=== PATIENT | male | born 1955 | race Caucasian/White ===

== ENCOUNTER 2018-02-02 21:50 | Inpatient (IN) | payer OTHER ==
[~2018-02-02] VITALS: Ht 175.3 cm; Wt 74.8 kg
--- NOTE | 2018-02-02 21:50 | NUR ---
BIBA [facility] TO BED 4
[2018-02-02 21:56] VITALS: BP 111/48
--- NOTE | 2018-02-02 21:56 | NUR ---
PT BIBA C/O L NECK PORT A CATH SITE PAIN X 1 DAY, DILUADID GIVEN 3X SINCE YESTERDAY WITH NO RELIEF. SITE IS NEGATIVE FOR ERYTHEMA, EDEMA, POSITIVE FOR PAIN. PT DENIES N/V/D; SKIN IS INTACT, PINK/WARM/DRY; AAOX4, PERRL, PT BEDREST AT BASELINE. LUNGS CLEAR BL, BREATHING UNLABORED; HR EVEN AND REGULAR, BL PERIPHERAL PULSES PRESENT; BS ACTIVE X4, NO TENDERNESS TO PALPATION, NO HEPATOSPLENOMEGALLY PALPATED, RESONANT TO PERCUSSION; PT DENIES ANY FEVER, CP, SOB, OR COUGH AT THIS TIME; PT STATES 9/10 PAIN AT THIS TIME; VSS; PATIENT POSITIONED FOR COMFORT; HOB ELEVATED; BEDRAILS UP X2; BED DOWN.
--- NOTE | 2018-02-02 23:00 | NUR ---
PT IN NAD, ASLEEP ON GURNEY. NO REQUESTS AT THIS TIME.
[2018-02-02] MEDS ORDERED: HYDROmorphone PFS 2 MG/ML SYR IVP ONE (23:10)
[2018-02-02] MEDS ORDERED: METOCLOPRAMIDE 10 MG/2 ML INJ VIAL IVP ONE (23:10)
[2018-02-02 23:43] LABS: BASOPHILS # (AUTO) 0.1 K/uL (0.00-0.22); BASOPHILS % (AUTO) 1.3 % (0.0-2.0); EOSINOPHILS # (AUTO) 0.1 K/uL (0-0.4); EOSINOPHILS % (AUTO) 1.6 % (0.0-4.0); HEMATOCRIT 38.4 % (36-52); HEMOGLOBIN 12.1 g/dL (12.0-18.0); LYMPHOCYTES # (AUTO) 1.2 K/uL (2.0-11.5); LYMPHOCYTES % (AUTO) 15.6 % (20.5-51.1); MEAN CORPUSCULAR HEMOGLOBIN 30 pg (27-31); MEAN CORPUSCULAR HGB CONC 32 g/dL (33-37); MONOCYTES # (AUTO) 0.8 K/uL (0.8-1.0); MONOCYTES % (AUTO) 11.2 % (1.7-9.3); NEUTROPHILS # (AUTO) 5.3 K/uL (1.8-7.7); NEUTROPHILS % (AUTO) 70.3 % (42.2-75.2); PLATELET COUNT (AUTO) 288 K/uL (140-450); RED BLOOD CELL COUNT(AUTO) 4.04 MIL/uL (4.20-6.10); RED CELL DISTRIBUTION WIDTH 16.3 % (11.6-13.7); WHITE BLOOD COUNT (AUTO) 7.6 K/uL (4.8-10.8)
[2018-02-02 23:58] LABS: CARBON DIOXIDE 27.4 mmol/L (21-32); POTASSIUM 4.4 mmol/L (3.5-5.1)
[2018-02-03] MEDS ORDERED: HYDROcodone/APAP 7.5/325 MG 1 TAB PO PRN
[2018-02-03] MEDS ORDERED: ONDANSETRON 4 MG/2 ML VIAL IVP PRN
[2018-02-03 00:01] LABS: CREATININE 4.8 mg/dL (0.7-1.3)
[2018-02-03 00:05] LABS: ALBUMIN 3.1 g/dL (3.4-5.0); TOTAL BILIRUBIN 0.5 mg/dL (0.0-1.0)
[2018-02-03 00:12] LABS: PROTHROMBIN TIME 12.7 secs (10.8-13.4)
[2018-02-03] MEDS ORDERED: INSULIN LISPRO SLIDING SCALE 100 UNITS/ML VIAL SUBQ PRN (00:15)
[2018-02-03] MEDS ORDERED: DEXTROSE 50% 50 ML SYR IVP PRN (00:15)
[2018-02-03 00:38] VITALS: BP 131/85
--- NOTE | 2018-02-03 00:38 | NUR ---
PT BROUGHT BY WILLIAMS FROM ED, REPORT RECEIVED AT BESIDE FROM ED THEO JOHNSON. PT IS AWAKE AND ABLE TO FOLLOW COMMANDS, NO SIGNS OF DISTRESS, ON 2 L NC, IV IN LEFT WRIST 24G SL, PATENT AND NO SIGNS OF REDNESS OR EDEMA, V/S TAKEN, BP 131/81, PT STATES SLIGHTLY ABOVE BASELINE, PT LEFT NECK PORTACATH DRESSING DRY AND INTACT, SLIGHT REDNESS AROUND SITE, NO C/O PAIN AT THIS TIME, PICTURE TAKEN AND PLACED IN CHART, INTRODUCED SELF AND UPDATED BOARD, ORIENTATED TO ROOM, CALL LIGHT WITHIN REACH, BED IN LOWEST POSITION, WATER AND JELLO OFFERED, PT SITTING UP IN BED, RELAXED, QUESTIONS ANSWERED, WILL START PLAN OF CARE PER MD ORDERS, WILL START FREQ CHECKS Addendum: 02/03/18 at 0249 by Annmarie Weems RN NOT PORT-A CATH BUT DIALYSIS CATH.
--- NOTE | 2018-02-03 00:40 | NUR ---
Patient will be admitted to care of DR. SANTOS. Admited to [facility]. Will go to room 114. Belongings list completed. Report to ANA VENEGAS.
[2018-02-03 00:47] LABS: CHOL/HDL RATIO 4.3 (1-4.5); FREE T4 (FREE THYROXINE) 1.22 ng/dL (0.76-1.46); MAGNESIUM 2.1 mg/dL (1.8-2.4); PHOSPHORUS 4.2 mg/dL (2.5-4.9); THYROID STIMULATING HORMONE 1.85 uIU/mL (0.34-3.74)
[2018-02-03] MEDS: NACL 0.9% 1,000 ML IV SCH (01:39)
[2018-02-03] MEDS ORDERED: MIDODRINE 5 MG TAB PO SCH (02:00)
[2018-02-03] MEDS ORDERED: ZOLPIDEM 5 MG TAB PO SCH (02:00)
[2018-02-03] MEDS ORDERED: ATOR40TA PO (02:50)
[2018-02-03] MEDS ORDERED: RIVA20TA PO (02:50)
[2018-02-03] MEDS ORDERED: HYDR2TAB6 PO (02:50)
[2018-02-03] MEDS ORDERED: PRO5 PO (02:50)
--- NOTE | 2018-02-03 02:54 | NUR ---
DUE MEDICATIONS GIVEN, PT TOLERATED WELL, WILL CONTINUE TO MONITOR, CALL LIGHT WITHIN REACH.
--- NOTE | 2018-02-03 03:00 | NUR ---
STRAIGHT CATH DONE PER DR ORDER, URINE SENT TO LAB PER MD ORDER, PT TOLERATED WELL, WILL CONTINUE TO MONITOR, CALL LIGHT WITHIN REACH.
[2018-02-03] MEDS ORDERED: ASCO500T45 PO (03:25)
[2018-02-03] MEDS ORDERED: VITA1TAB44 PO (03:25)
[2018-02-03] MEDS ORDERED: [UNRECOGNIZED DRUG - CODE] PO (03:25)
[2018-02-03 03:29] LABS: APPEARANCE,URINE TURBID (CLEAR); BILIRUBIN,URINE 1+ (NEGATIVE); BLOOD, URINE 3+ (NEGATIVE); COLOR,URINE YELLOW (YELLOW); LEUKOCYTE ESTERASE ,URINE 3+ (NEGATIVE); NITRITE, URINE NEGATIVE (NEGATIVE); UGLUCOSE NEGATIVE (NEGATIVE)
[2018-02-03] MEDS ORDERED: LACT10SO1 PO (03:29)
[2018-02-03 03:39] LABS: BARBITURATE, URINE NEG. ng/ml (NEG <=200); BENZODIAZEPINE, URINE NEG. ng/mL (NEG <=200); CANNABINOID, URINE NEG. ng/mL (NEG <=50); COCAINE, URINE NEG. ng/mL (NEG <=300); OPIATE, URINE POS. ng/mL (NEG <=2000); PHENCYCLIDINE SCREEN,URINE NEG. ng/mL (NEG <=25)
[2018-02-03] MEDS ORDERED: ALBUTEROL SULFATE/IPRATROPIU 3 ML SOL IH PRN (03:40)
[2018-02-03 03:42] LABS: RBC,URINE >100 /HPF (0-5); WBC,URINE TOO MANY TO COUNT /HPF (0-5)
[2018-02-03 04:00] VITALS: BP 139/85
--- NOTE | 2018-02-03 04:49 | NUR ---
PT SLEEPING IN BED, NO SIGNS OF DISTRESS, BED IN LOWEST POSITION, CALL LIGHT WITHIN REACH, WILL CONTINUE TO MONITOR.
[2018-02-03] MEDS ORDERED: cefTRIAXone 1,000 MG VIAL ONE (06:23)
[2018-02-03] MEDS: LEVOTHYROXINE 0.05 MG TAB PO SCH (06:23)
--- NOTE | 2018-02-03 06:23 | NUR ---
DUE MEDICATIONS GIVEN, PT TOLERATED WELL, WILL CONTINUE TO MONITOR, CALL LIGHT WITHIN REACH.
[2018-02-03] MEDS: MIDODRINE 5 MG TAB PO SCH ×3 (06:24→21:00)
--- NOTE | 2018-02-03 06:33 | NUR ---
PATIENT HAS BEEN SCREENED AND CATEGORIZED HIGH NUTRITION RISK. PATIENT WILL BE SEEN WITHIN 1-2 DAYS OF ADMISSION. 02/04/18-02/05/18 VIKAS LYNN MS, RDN
[2018-02-03 07:26] LABS: BASOPHILS # (AUTO) 0.1 K/uL (0.00-0.22); BASOPHILS % (AUTO) 0.9 % (0.0-2.0); EOSINOPHILS # (AUTO) 0.2 K/uL (0-0.4); EOSINOPHILS % (AUTO) 3.5 % (0.0-4.0); HEMOGLOBIN 12.2 g/dL (12.0-18.0); LYMPHOCYTES # (AUTO) 1.4 K/uL (2.0-11.5); LYMPHOCYTES % (AUTO) 19.8 % (20.5-51.1); MEAN CORPUSCULAR HEMOGLOBIN 29 pg (27-31); MEAN CORPUSCULAR HGB CONC 31 g/dL (33-37); MEAN CORPUSCULAR VOLUME 96.1 fL (80-94); MONOCYTES # (AUTO) 0.6 K/uL (0.8-1.0); MONOCYTES % (AUTO) 8.7 % (1.7-9.3); NEUTROPHILS # (AUTO) 4.8 K/uL (1.8-7.7); NEUTROPHILS % (AUTO) 67.1 % (42.2-75.2); PLATELET COUNT (AUTO) 312 K/uL (140-450); RED BLOOD CELL COUNT(AUTO) 4.16 MIL/uL (4.20-6.10); RED CELL DISTRIBUTION WIDTH 16.3 % (11.6-13.7); WHITE BLOOD COUNT (AUTO) 7.2 K/uL (4.8-10.8)
[2018-02-03] MEDS ORDERED: BLOOD GLUCOSE MONITORING 1 DEV DEV FS SCH (07:30)
--- NOTE | 2018-02-03 07:36 | NUR ---
ENDORSED PT TO DAY SHIFT NURSE GIANNA CAMPOS STABLE AT THIS TIME.
--- NOTE | 2018-02-03 07:37 | NUR ---
RECEIVED REPORT FROM THE ELEMENTARY READING TUTOR NURSE AT BEDSIDE FOR CONTINUITY OF CARE. PT IS AWAKE AND ORIENTED. INTRODUCED MYSELF AND UPDATE THE BOARD. V/S WITHIN NORMAL RANGE. DENIES PAIN AT THIS TIME. PT IS BEDBOUND, SKIN INTACT. IV ON L HAND 24G TKO. L CHEST DIALYSIS CATH -NOT WORKING. MD'S ROUNDING. PER , WAITING ON DR. MCCRAY FOR CONSULT, POSSIBLE EKTA CATH AT BEDSIDE, THEN DIALYSIS TODAY. MISSED DIALYSIS YESTERDAY D/T CATH MALFUNCTION. PT ALSO HAS UTI. CONTINUE W/ ABX TX. WILL CONTINUE TO MONITOR PT.
[2018-02-03 07:40] LABS: ANION GAP 14.1 (8-16); CARBON DIOXIDE 28.1 mmol/L (21-32); POTASSIUM 4.2 mmol/L (3.5-5.1)
[2018-02-03 07:42] LABS: MAGNESIUM 2.1 mg/dL (1.8-2.4); PHOSPHORUS 5.3 mg/dL (2.5-4.9)
[2018-02-03 07:50] LABS: CREATININE 5.1 mg/dL (0.7-1.3)
[2018-02-03 08:00] VITALS: BP 116/71
[2018-02-03] MEDS ORDERED: RIVAROXABAN 10 MG TAB PO SCH (09:00)
[2018-02-03] MEDS ORDERED: ECOTRIN 81 MG TABEC PO SCH (09:00)
[2018-02-03] MEDS: LACTULOSE 20 GM/30 ML UDC PO SCH (09:04)
[2018-02-03] MEDS: DOCUSATE SODIUM 100 MG GELCAP PO SCH ×2 (09:05→21:05)
[2018-02-03] MEDS: FENOFIBRATE 48 MG TAB PO SCH (09:05)
[2018-02-03] MEDS: LACTOBACILLUS RHAMNOSUS GG 1 EACH CAP PO SCH (09:06)
[2018-02-03] MEDS: ATORVASTATIN 20 MG TAB PO SCH (09:06)
--- NOTE | 2018-02-03 09:10 | NUR ---
STUDENT AND INSTRUCTOR ADMINISTERED MORNING MEDS. PT TOLERATED WELL. PT SIGNED THE CONSENT FOR THE TDC. PT VERBALIZED UNDERSTANDING. NOW IN CHART. WILL CONTINUE TO MONITOR PT.
--- NOTE | 2018-02-03 09:24 | NUR ---
DR MCCRAY CALLED. PT NOT NPO SO NO TDC TODAY. POSSIBLY DO A EKAT FOR DIALYSIS TODAY AND DO TDC ON MONDAY. WILL NEED TO KEEP PT NPO AFTER MIDNIGHT ON MONDAY NIGHT. WILL ENDORSE. WILL GET EVERYTHING READY FOR EKTA CATH INSERTION, INCLUDING CONSENT.
[2018-02-03] MEDS: ALBUTEROL SULFATE/IPRATROPIU 3 ML SOL IH SCH ×2 (09:31→19:46)
--- NOTE | 2018-02-03 09:40 | NUR ---
RECEIVED PATIENT ON 2L NC, O2 SAT 94%. BREATHING TREATMENT ADMINISTERED. PATIENT TOLERATED TX WELL, NO ADVERSE SIDE EFFECTS. NO RESPIRATORY DISTRESS NOTED. WILL CONTINUE TO MONITOR.
--- NOTE | 2018-02-03 10:00 | NUR ---
DR MCCRAY HERE TO ASSESS PT. D/T PT ALREADY HAVE EATEN BREAKFAST AND TOOK ASPIRIN, WILL DO THE PROCEDURE TOMORROW MORNING. PT IS TO BE NPO AFTER MIDNIGHT AND HOLD ASPIRIN. DR MCCRAY SPOKE TO DR REESE NEPHBOSTON LUNA TO DO DIALYSIS TOMORROW AFTER THE NEW TDC IS INSERTED. WILL CONTINUE TO MONITOR PT.
[2018-02-03 12:00] VITALS: BP 112/54
--- NOTE | 2018-02-03 12:08 | NUR ---
VS WITHIN NORMAL RANGE. NO SIGNS OF DISTRESS. NO COMPLAINTS. NOTIFIED PT OF THE HOLD ON DIALYSIS TODAY AND HIS TDC TOMORROW MORNING. PT AWARE. WILL CONTINUE TO MONITOR PT.
--- NOTE | 2018-02-03 13:38 | NUR ---
DOPPLER AND US BEING DONE. WILL BE BACK TO ADMINISTER MED.
--- NOTE | 2018-02-03 14:29 | NUR ---
PROCEDURE JUST FINISHED. REDRESSED THE TDC. PULLED PT UP FOR LATE LUNCH. GAVE SCHEDULED MED. PT TOLERATED WELL. WILL CONTINUE TO MONITOR PT.
[2018-02-03 16:00] VITALS: BP 104/68
--- NOTE | 2018-02-03 16:48 | NUR ---
PT IS RESTING COMFORTABLY. NO SIGNS OF DISTRESS. WILL CONTINUE TO MONITOR PT.
--- NOTE | 2018-02-03 17:47 | NUR ---
PT SLEEPING SOUNDLY. NO SIGNS OF DISTRESS. WILL CONTINUE TO MONITOR PT.
--- NOTE | 2018-02-03 19:25 | NUR ---
RECEIVED PATIENT RESTING ON BED. CALL LIGHT WITHIN REACH. IV INFUSING WELL. WILL CONTINUE TO MONITOR.
--- NOTE | 2018-02-03 19:25 | NUR ---
ENDORSED PT TO THE HEALTH DIRECTOR NURSE AT BEDSIDE FOR CONTINUITY OF CARE. PT IS IN STABLE CONDITION.
[2018-02-03 20:00] VITALS: BP 130/52
--- NOTE | 2018-02-03 20:30 | NUR ---
NOTIFIED RESIDENT ABOUT THE US RESULT. NO CHANGES MADE.
[2018-02-03] MEDS: ZOLPIDEM 5 MG TAB PO SCH (21:04)
--- NOTE | 2018-02-03 22:20 | NUR ---
SEEN PATIENT RESTING ON BED WITH CALL LIGHT WITHIN REACH. NO S/S OF DISTRESS NOTED AT THIS TIME. INSTRUCTED PATIENT NPO AFTER MIDNIGHT AND VERBALIZED UNDERSTANDING. NPO SIGN PLACE INFRONT OF THE DOOR .WILL CONTINUE TO MONITOR.
[2018-02-04] VITALS (12 sets, daily range): BP systolic 98–135; BP diastolic 51–81
[2018-02-04] MEDS: NACL 0.9% 1,000 ML IV SCH (01:00)
--- NOTE | 2018-02-04 04:20 | NUR ---
SEEN PATIENT RESTING ON BED WITH CALL LIGHTS WITHIN REACH. BED IN LOW POSITION. NO S/S OF DISTRESS NOTED AT THIS TIME.
[2018-02-04] MEDS: LEVOTHYROXINE 0.05 MG TAB PO SCH (05:37)
[2018-02-04] MEDS: MIDODRINE 5 MG TAB PO SCH ×3 (06:13→18:32)
--- NOTE | 2018-02-04 07:15 | NUR ---
GAVE REPORT TO AM SHIFT NURSE AT BEDSIDE FOR CONTINUITY OF CARE. PATIENT IN STABLE CONDITION.
--- NOTE | 2018-02-04 07:16 | NUR ---
RECEIVED BEDSIDE REPORT FROM TRUST MANAGER NURSE. PATIENT IS AWAKE, ALERT AND ORIENTEDX3. PATIENT IN NO DISTRESS ON 2L NC. HE IS BEDBOUND, PARAPELGIC. SKIN HAS A L NECK PORT A CATH, TODAY HE WILL BE GETTING IT REMOVED. CONSENT SIGNED BY TRUST MANAGER NURSE, SURGICAL CHECKLIST DONE BY TRUST MANAGER NURSE. TELE MONITOR IN PLACE. L WRIST 24G NS TKO. IV IS CLEAN, DRY AND INTACT. PATIENT IS NPO FOR SURGERY. BED IN LOW POSITION. CALL LIGHT WITHIN REACH. WILL CONTINUE TO MONITOR THE PATIENT. R ARM IS RESTRICTED D/T THROMBUS WITHIN INTERNAL JUGULAR VEIN. SIGNS POSTED.
--- NOTE | 2018-02-04 07:20 | NUR ---
GAVE REPORT TO OR NURSE. PATIENT LEFT WITH OR IN STABLE CONDITION.
[2018-02-04] MEDS ORDERED: BUPIVACAINE-MPF 0.5% 10 ML VIAL INJ ONE (07:36)
[2018-02-04] MEDS ORDERED: LIDOCAINE/EPI 1% 1:100000 20 ML VIAL INJ ONE (07:37)
[2018-02-04 07:42] LABS: BASOPHILS # (AUTO) 0.1 K/uL (0.00-0.22); BASOPHILS % (AUTO) 1.4 % (0.0-2.0); EOSINOPHILS # (AUTO) 0.3 K/uL (0-0.4); EOSINOPHILS % (AUTO) 4.2 % (0.0-4.0); HEMATOCRIT 35.7 % (36-52); HEMOGLOBIN 11.2 g/dL (12.0-18.0); LYMPHOCYTES # (AUTO) 1.1 K/uL (2.0-11.5); LYMPHOCYTES % (AUTO) 17.3 % (20.5-51.1); MEAN CORPUSCULAR HEMOGLOBIN 30 pg (27-31); MEAN CORPUSCULAR HGB CONC 31 g/dL (33-37); MEAN CORPUSCULAR VOLUME 95.3 fL (80-94); MONOCYTES # (AUTO) 0.8 K/uL (0.8-1.0); NEUTROPHILS # (AUTO) 4.1 K/uL (1.8-7.7); NEUTROPHILS % (AUTO) 64.1 % (42.2-75.2); PLATELET COUNT (AUTO) 280 K/uL (140-450); RED BLOOD CELL COUNT(AUTO) 3.75 MIL/uL (4.20-6.10); RED CELL DISTRIBUTION WIDTH 16.1 % (11.6-13.7); WHITE BLOOD COUNT (AUTO) 6.4 K/uL (4.8-10.8)
[2018-02-04 07:46] LABS: ANION GAP 15.5 (8-16); CARBON DIOXIDE 26.6 mmol/L (21-32); POTASSIUM 4.1 mmol/L (3.5-5.1)
[2018-02-04] MEDS ORDERED: ceFAZolin 1,000 MG VIAL ONE (07:50)
[2018-02-04] MEDS ORDERED: fentaNYL 0.05 MG/ML VIAL ONE (07:52)
[2018-02-04] MEDS ORDERED: MIDAZOLAM 2 MG/2 ML VIAL ONE ×2 (07:53→08:07)
[2018-02-04 07:55] LABS: MAGNESIUM 2.1 mg/dL (1.8-2.4); PHOSPHORUS 5.3 mg/dL (2.5-4.9)
[2018-02-04 07:59] LABS: CREATININE 5.4 mg/dL (0.7-1.3)
[2018-02-04] MEDS: FENOFIBRATE 48 MG TAB PO SCH (09:00)
[2018-02-04] MEDS: DOCUSATE SODIUM 100 MG GELCAP PO SCH ×2 (09:00→21:14)
[2018-02-04] MEDS: ATORVASTATIN 20 MG TAB PO SCH (09:00)
[2018-02-04] MEDS: LACTOBACILLUS RHAMNOSUS GG 1 EACH CAP PO SCH (09:00)
--- NOTE | 2018-02-04 10:00 | NUR ---
PATIENT BACK ON THE FLOOR FROM OR. VITALS ARE WITHIN NORMAL LIMITS ON 2L NC. BED IN LOW POSITION. CALL LIGHT WITHIN REACH. WILL CONTINUE TO MONITOR THE PATIENT. WILL CHECK POST OP VITALS
[2018-02-04] MEDS: ALBUTEROL SULFATE/IPRATROPIU 3 ML SOL IH SCH ×3 (10:45→20:58)
[2018-02-04] MEDS: HYDROmorphone 2 MG TAB PO PRN (11:37)
--- NOTE | 2018-02-04 12:00 | NUR ---
DIALYSIS NURSE AT BEDSIDE GOING TO START DIALYSIS. WILL CONTINUE TO MONITOR THE PATIENT.
--- NOTE | 2018-02-04 13:00 | NUR ---
PATIENT TOLERATING DIALYSIS WELL. WILL CONTINUE TO MONITOR THE PATIENT.
[2018-02-04] MEDS ORDERED: HYDROmorphone 1 MG/ML AMP IVP SCH (13:29)
--- NOTE | 2018-02-04 15:00 | NUR ---
DIALYSIS NURSE DONE WITH DIALYSIS. SHE WAS UNABLE TO GET ANY OUTPUT. SHE STATES PATIENT IS DRY AND THE CATH KEPT CLOTTING TOO FAST. DIALYSIS NURSE TOLD DR. SHE SAID IS AWARE.
[2018-02-04] MEDS ORDERED: tiZANidine 4 MG TAB PO SCH (15:15)
[2018-02-04] MEDS ORDERED: CARISOPRODOL 350 MG TAB PO ONE (17:15)
--- NOTE | 2018-02-04 17:30 | NUR ---
CONTACT PRECAUTIONS IN PLACE. MRSA POSITIVE IN NARES.
[2018-02-04] MEDS: MUPIROCIN 2% OINT 22 GM TUBE TP SCH (17:45)
[2018-02-04] MEDS: CHLORHEXADINE GLUC 2% CLOTH TP SCH (18:32)
--- NOTE | 2018-02-04 19:15 | NUR ---
GAVE BEDSIDE REPORT TO FLEET MECHANIC NURSE. PATIENT IS IN STABLE CONDITION
--- NOTE | 2018-02-04 19:20 | NUR ---
RECEIVED PATIENT LYING ON BED . PATIENT AAOX4, COOPERATIVE AND REPOSITIONED FOR COMFORT. DISCUSSED PLAN OF CARE AND VERBALIZED UNDERSTANDING.
--- NOTE | 2018-02-04 20:13 | NUR ---
HE REFUSED TX HHN AT THIS TIME, HE WANTS AFTER HIS REPOSITION
--- NOTE | 2018-02-04 20:58 | NUR ---
I RETURNED TO GAVE PT HHNTX, AND HE WANTS TO SLEEP NOW
[2018-02-04] MEDS: tiZANidine 4 MG TAB PO SCH (21:00)
[2018-02-04] MEDS: ZOLPIDEM 5 MG TAB PO SCH (21:14)
--- NOTE | 2018-02-04 21:25 | NUR ---
MEDICATION GIVEN AND TOLERATED WELL. REPOSITIONED PATIENT TO HIS SIDE AND CHANGE UNDER PADS . WILL CONTINUE TO MONITOR.
--- NOTE | 2018-02-04 23:25 | NUR ---
REPOSITIONED PATIENT TO HIS SIDE AND PLACE IN COMFORTABLE POSITION. CALL LIGHTS WITHIN REACH. WILL CONTINUE TO MONITOR.
[2018-02-05] VITALS: BP 126/62
[2018-02-05] MEDS: HYDROmorphone 2 MG TAB PO PRN ×3 (00:57→22:28)
[2018-02-05] MEDS: NACL 0.9% 1,000 ML IV SCH (01:00)
--- NOTE | 2018-02-05 02:22 | NUR ---
SEEN PATIENT RESTING COMFORTABLY ON BED WITH NC 2L IN PLACE. IV INFUSING WELL RUNNING @KVO. CALL LIGHT WITHIN REACH. WILL CONTINUE TO MONITOR.
[2018-02-05 04:00] VITALS: BP 109/61
[2018-02-05] MEDS: tiZANidine 4 MG TAB PO SCH ×3 (04:34→21:14)
[2018-02-05] MEDS: LEVOTHYROXINE 0.05 MG TAB PO SCH (06:04)
[2018-02-05] MEDS: MIDODRINE 5 MG TAB PO SCH ×3 (06:04→18:04)
[2018-02-05 06:47] LABS: BASOPHILS # (AUTO) 0.1 K/uL (0.00-0.22); BASOPHILS % (AUTO) 1.2 % (0.0-2.0); EOSINOPHILS # (AUTO) 0.4 K/uL (0-0.4); EOSINOPHILS % (AUTO) 5.9 % (0.0-4.0); HEMATOCRIT 32.4 % (36-52); HEMOGLOBIN 10.4 g/dL (12.0-18.0); LYMPHOCYTES # (AUTO) 1.4 K/uL (2.0-11.5); LYMPHOCYTES % (AUTO) 22.7 % (20.5-51.1); MEAN CORPUSCULAR HEMOGLOBIN 30 pg (27-31); MEAN CORPUSCULAR HGB CONC 32 g/dL (33-37); MEAN CORPUSCULAR VOLUME 92.7 fL (80-94); MONOCYTES # (AUTO) 0.6 K/uL (0.8-1.0); MONOCYTES % (AUTO) 9.7 % (1.7-9.3); NEUTROPHILS # (AUTO) 3.8 K/uL (1.8-7.7); NEUTROPHILS % (AUTO) 60.5 % (42.2-75.2); PLATELET COUNT (AUTO) 237 K/uL (140-450); RED BLOOD CELL COUNT(AUTO) 3.49 MIL/uL (4.20-6.10); WHITE BLOOD COUNT (AUTO) 6.2 K/uL (4.8-10.8)
[2018-02-05 07:10] LABS: PROTHROMBIN TIME 12.7 secs (10.8-13.4)
--- NOTE | 2018-02-05 07:12 | NUR ---
ENDORSEMENT GIVEN AT BEDSIDE TO AM SHIFT NURSE FOR CONTINUITY OF CARE. PATIENT IN STABLE CONDITION.
--- NOTE | 2018-02-05 07:14 | NUR ---
RECEIVED BEDSIDE REPORT FROM LABORER FILTER PLANT NURSE. PATIENT IS AWAKE, ALERT AND ORIENTEDX4. REPOSITIONED HIM WITH COMIC ARTIST. NO SIGNS OF DISTRESS ON 2L NC. PATIENT IS BEDBOUND, PARAPLEGIC. PATIENT IS INCONTINENT. TELE MONITOR IN PLACE. L FOOT 24G INFUSING 5ML/HR TKO. DIALYSIS CATH ON L UPPER CHEST, SOILED, WILL CLEAN THE DRESSING. NO SIGNS OF INFECTION. BED IN LOW POSITION. CALL LIGHT WITHIN REACH. WILL CONTINUE TO MONITOR THE PATIENT.
[2018-02-05 07:26] LABS: ANION GAP 12.9 (8-16); CARBON DIOXIDE 28.3 mmol/L (21-32); POTASSIUM 4.2 mmol/L (3.5-5.1)
[2018-02-05 07:33] LABS: CREATININE 4.2 mg/dL (0.7-1.3)
[2018-02-05 07:34] LABS: MAGNESIUM 1.8 mg/dL (1.8-2.4); PHOSPHORUS 4.7 mg/dL (2.5-4.9)
[2018-02-05] MEDS: ALBUTEROL SULFATE/IPRATROPIU 3 ML SOL IH SCH ×2 (07:56→20:11)
[2018-02-05 08:00] VITALS: BP 112/70
[2018-02-05] MEDS: DOCUSATE SODIUM 100 MG GELCAP PO SCH ×2 (09:19→21:14)
[2018-02-05] MEDS: LACTOBACILLUS RHAMNOSUS GG 1 EACH CAP PO SCH (09:20)
[2018-02-05] MEDS: FENOFIBRATE 48 MG TAB PO SCH (09:20)
[2018-02-05] MEDS: ATORVASTATIN 20 MG TAB PO SCH (09:20)
[2018-02-05] MEDS: ACETAMINOPHEN 325 MG TAB PO PRN ×2 (09:20→18:04)
--- NOTE | 2018-02-05 09:22 | NUR ---
ADMINISTERED MEDS. PATIENT TOLERATED WELL. BED IN LOW POSITION. CALL LIGHT WITHIN REACH. WILL CONTINUE TO MONITOR THE PATIENT.
--- NOTE | 2018-02-05 09:29 | NUR ---
DR ALICEA IN AND SAW PATIENT, ANSWERED ALL PATIENTS QUESTIONS AT THIS TIME. HE SAID HE WILL GET DR MCCRAY TO DO ANOTHER CONSULT FOR THE DIALYSIS CATH. PATIENT VERBALIZED UNDERSTANDING. WILL CONTINUE TO MONITOR THE PATIENT. DR ALICEA SAID TO NOT TAKE OFF DRESSING AND TO JUST WAIT FOR DR MCCRAY
[2018-02-05] MEDS ORDERED: hePARIN / DEXT 5% PREMIX 250 ML IV SCH (10:05)
[2018-02-05] MEDS ORDERED: HEPARIN PER PHARMACY MC PRN (10:05)
[2018-02-05] MEDS: hePARIN / DEXT 5% PREMIX 250 ML IV SCH ×2 (11:34→20:11)
--- NOTE | 2018-02-05 11:40 | NUR ---
STARTED HEPARIN DRIP AND HEPARIN BOLUS PER PROTOCOL. EDUCATED THE PATIENT ON ABN S/SX OF BLEEDING. PATIENT VERBALIZED UNDERSTANDING. WILL CONTINUE TO MONITOR THE PATIENT
[2018-02-05 12:00] VITALS: BP 103/60
--- NOTE | 2018-02-05 12:40 | NUR ---
PATIENT WITH SS AT THIS TIME. PATIENT IN STABLE CONDITION
--- NOTE | 2018-02-05 13:56 | NUR ---
TURNED PATIENT WITH THEO CELESTIN. PATIENT TOLERATED WELL. BED IN LOW POSITION. CALL LIGHT WITHIN REACH. WILL CONTINUE TO MONITOR THE PATIENT.
--- NOTE | 2018-02-05 15:34 | NUR ---
02/05/18 RD INITIAL ASSESSMENT COMPLETED PLEASE REFER TO NUTRITION ASSESSMENT UNDER CARE ACTIVITY FOR ESTIMATED NUTRITIONAL NEEDS. 1. CONTINUE RENAL DIET TOLERATED 2. PROVIDE NUTRITION EDUCATION FOR FOLLOW UP VISIT 3. RD TO FOLLOW-UP 3-5 DAYS, MODERATE RISK MAXINE SERRA RD
[2018-02-05 16:00] VITALS: BP 110/69
--- NOTE | 2018-02-05 16:00 | NUR ---
VITALS ARE WITHIN NORMAL LIMITS. BED IN LOW POSITION. CALL LIGHT WITHIN REACH, WILL CONTINUE TO MONITOR THE PATIENT,
[2018-02-05] MEDS: CHLORHEXADINE GLUC 2% CLOTH TP SCH (18:21)
[2018-02-05] MEDS: MUPIROCIN 2% OINT 22 GM TUBE TP SCH (18:21)
--- NOTE | 2018-02-05 18:23 | NUR ---
ADMINISTERED MEDS. PATIENT TOLERATED WELL. CLEANED AND CHANGED DRESSING FOR THE DIALYSIS CATH. WILL CONTINUE TO MONITOR THE PATIENT.
--- NOTE | 2018-02-05 18:52 | NUR ---
STOPPED HEPARIN PER PHARMACY PROTOCOL. WILL ENDORSE TO SPACE TECHNOLOGIST TO RESTART AND CHANGE DOSE AT 1951
--- NOTE | 2018-02-05 19:20 | NUR ---
GAVE BEDSIDE REPORT TO LABORER STARCH FACTORY NURSE. PATIENT IN STABLE CONDITION
--- NOTE | 2018-02-05 19:52 | NUR ---
A/A/OX4.PARAPLEGIC.AFEBRILE.DENIES ANY DISCOMFORT.DENIES SOB.HEPARIN DRIP RESUMED @ 1100UNITS/HR.
[2018-02-05 20:00] VITALS: BP 90/50
[2018-02-05] MEDS: ZOLPIDEM 5 MG TAB PO SCH (21:13)
--- NOTE | 2018-02-05 22:00 | NUR ---
REPOSITIONED BY TRADE FACILITATOR.NO ACUTE DISTRESS NOTED.
[2018-02-06] VITALS: BP 97/55
--- NOTE | 2018-02-06 00:01 | NUR ---
V/S S.AFEBRILE.REPOSITIONED. HEPARIN DRIP INFUSING WELL.
[2018-02-06] MEDS: NACL 0.9% 1,000 ML IV SCH (01:00)
--- NOTE | 2018-02-06 03:00 | NUR ---
@0255 LAB CALLED PTT 78.6. @0300 HEPARIN DRIP < @950 UNITS/HR INFUSING WELL WITH SOFTWARE DEVELOPMENT MANAGER.KEPT NPO POST [place] PER MD ORDER;VERBALIZED UNDERSTANDING OF THE INSTRUCTION GIVEN.
[2018-02-06] MEDS: hePARIN / DEXT 5% PREMIX 250 ML IV SCH (03:03)
[2018-02-06 04:00] VITALS: BP 107/45
[2018-02-06] MEDS: tiZANidine 4 MG TAB PO SCH ×3 (05:00→20:14)
--- NOTE | 2018-02-06 06:00 | NUR ---
IV INSERTED ON HIS LEFT LEG WITH ANGIO # 22 X1.ROCEPHIN IV ADM ORDERED. NEPHRO MD'S DID THEIR ROUNDS & WAS SO UPSET WHY WAS NOT CALLED BY ANYBODY THAT PT WAS NOT DIALYZED. SPOKE TO KISS SETTER HAND RE; THE INCIDENT.
[2018-02-06] MEDS: LEVOTHYROXINE 0.05 MG TAB PO SCH (06:06)
[2018-02-06] MEDS: MIDODRINE 5 MG TAB PO SCH ×3 (06:07→20:14)
--- NOTE | 2018-02-06 07:00 | NUR ---
REPORT GIVEN TO RN & WAS TOLD TO CALL HD RN.ENDORSED IN NO ACUTE DISTRESS. SAFETY MAINTAINED.
--- NOTE | 2018-02-06 07:10 | NUR ---
RECEIVED PT FROM DATABASE SOFTWARE TECHNICIAN NURSECAREN FROM REGISTRY. PT IS ASLEEP LYING ON THE BED, RESPIRATIONS EVEN, SIDE RAILS ARE UP AND CALL LIGHT WITHIN REACH. PT HAS AN ON GOING HEPARIN DRIP RUNNING AT 950UNITS, IN THE LEFT FOOT PERIPHERAL LINE. PT HAS ANOTHER PERIPHERAL LINE ON THE LEFT UPPER FOOT, INTACT. SAFETY PRECAUTION ENFORCED. NO SIGN OF DISTRESS NOTED. WILL CONTINUE TO MONITOR.
--- NOTE | 2018-02-06 07:44 | NUR ---
CALLED DIALYSIS NURSE AND SPOKE TO TJ ARIAS AND INFORMED HER THAT DR. CARRINGTON WANTS THE PT TO HAVE DIALYSIS TODAY. TJ ARIAS SAID THAT SHE WILL BE SENDING SOMEBODY TO DIALYSED THE PT TODAY. INFORMATION WAS RELAYED TO CHARGE NURSE, YARIEL.
[2018-02-06 08:00] VITALS: BP 128/77
[2018-02-06 08:38] LABS: ANION GAP 15.4 (8-16); CARBON DIOXIDE 25.4 mmol/L (21-32); POTASSIUM 3.8 mmol/L (3.5-5.1)
--- NOTE | 2018-02-06 08:40 | NUR ---
SHERI FROM LAB CALLED AND REPORTED THE PT'S CREATININE LEVEL WHICH IS 4.4, ACKNOWLEDGED AND WILL INFORM THE DOCTOR.
[2018-02-06 08:42] LABS: CREATININE 4.4 mg/dL (0.7-1.3)
[2018-02-06] MEDS: LACTULOSE 20 GM/30 ML UDC PO SCH (09:00)
--- NOTE | 2018-02-06 09:20 | NUR ---
PT IS AWAKE AND LYING ON THE BED, PT IS BEING PREPARED BY DIALYSIS NURSE FOR THE PROCEDURE, VITAL SIGNS TAKEN AND IS STABLE. MEDICATIONS GIVEN AND PT TOLERATED IT. NO SIGN OF DISTRESS NOTED. WILL CONTINUE TO MONITOR.
--- NOTE | 2018-02-06 09:30 | NUR ---
DIALYSIS NURSE, ELISE MORENO AND PT IS NOW BEING DIALYSED. NO SIGN OF DISTRESS NOTED AND WILL MONITOR.
[2018-02-06] MEDS: ATORVASTATIN 20 MG TAB PO SCH (09:57)
[2018-02-06] MEDS: LACTOBACILLUS RHAMNOSUS GG 1 EACH CAP PO SCH (09:58)
[2018-02-06] MEDS: HYDROmorphone 2 MG TAB PO PRN ×2 (09:58→21:03)
[2018-02-06] MEDS: FENOFIBRATE 48 MG TAB PO SCH (09:58)
[2018-02-06] MEDS: DOCUSATE SODIUM 100 MG GELCAP PO SCH ×2 (09:59→20:14)
--- NOTE | 2018-02-06 10:08 | NUR ---
DR. ALICEA VISITED AND SAW THE PT, WHILE DIALYSIS IS ON GOING. DR. ALICEA SPOKE TO THE PT AND THE DIALYSIS NURSE. VITAL SIGNS TAKEN AND MEDICATIONS GIVEN AND PT TOLERATED IT. NO SIGN OF DISTRESS NOTED. PT REFUSED TO TAKE THE LACTULOSE, ACKNOWLEDGED. WILL MONITOR PT.
--- NOTE | 2018-02-06 10:38 | NUR ---
SHERI FROM LAB CALLED AND INFORMED THAT THE PT'S PTT LEVEL IS 89.3, ACKNOWLEDGED AND WILL INFORM THE MD.
--- NOTE | 2018-02-06 10:50 | NUR ---
DR. LEZAMA WAS INFORMED OF THE PT'S PTT LEVEL OF 89.3, MD ACKNOWLEDGED AND WAS INFORMED TO DECREASE HEPARIN DRIP TO 800 UNITS. ACKNOWLEDGED AND WILL FACILITATE ORDER.
[2018-02-06 12:00] VITALS: BP 113/53
[2018-02-06] MEDS ORDERED: ALTEPLASE 2 MG VIAL MC SCH (13:00)
[2018-02-06] MEDS ORDERED: PRO5 PO (14:59)
--- NOTE | 2018-02-06 14:59 | NUR ---
Spoke to bed control at [facility] and still waiting for bed to open. Was given the floor phone number in case a bed is available. spoke to Dr. Castillo and stated that Dr. Pickens did not contact [facility] and Since Dr. Hameed accepted at [facility], then we wait for [facility] bed.
[2018-02-06] MEDS ORDERED: TRI48 PO (15:01)
[2018-02-06] MEDS ORDERED: SYN.05 PO (15:03)
[2018-02-06] MEDS ORDERED: TIZA4CAP PO (15:04)
[2018-02-06] MEDS ORDERED: ZOLP5TAB1 PO (15:04)
[2018-02-06] MEDS: ALBUTEROL SULFATE/IPRATROPIU 3 ML SOL IH SCH (15:25)
--- NOTE | 2018-02-06 15:35 | NUR ---
SPOKE TO DR. ALICEA AND SAID THAT THE PLAN OF CARE FOR THE PT IS TO BE TRANSFERRED TO [facility]. ACKNOWLEDGED INFORMATION.
[2018-02-06 16:00] VITALS: BP 112/57
[2018-02-06] MEDS: CHLORHEXADINE GLUC 2% CLOTH TP SCH (18:23)
[2018-02-06] MEDS: MUPIROCIN 2% OINT 22 GM TUBE TP SCH (18:23)
--- NOTE | 2018-02-06 19:20 | NUR ---
ENDORSED PT TO STENOCAPTIONER NURSEKATEY FOR CONTINUITY OF CARE. PT IS STABLE AT THIS TIME.
--- NOTE | 2018-02-06 19:21 | NUR ---
REPORT RECEIVED FROM AM NURSE. PT IN STABLE CONDITION. AAOX3. BOARD UPDATED AND INTRODUCED SELF TO PT. PT HAS 2 IV SITES IN THE LEFT FOOT. THE UPPER IV SITE WAS LEAKING DUE TO A LOOSE HUB ULTRASITE. IV SITE WAS TIGHTENED. NOW BOTH IV SITES ARE PATENT AND INTACT. SKIN WARM, DRY, AND INTACT WITH NO OPEN WOUNDS. BED LOCKED IN LOW POSITION. CALL CLAROS WITHIN REACH. WILL CONTINUE TO MONITOR.
--- NOTE | 2018-02-06 19:38 | NUR ---
[facility] WAS NOT AVAILABLE TO SCAN AT THE TIME SLOT, SO I SCAN [facility] UNDER Q4PRN ORDER AND TREATMENT WAS GIVEN
[2018-02-06 20:00] VITALS: BP 92/42
--- NOTE | 2018-02-06 20:14 | NUR ---
PM MEDS GIVEN. PT TOLERATED WELL.
--- NOTE | 2018-02-06 21:00 | NUR ---
AMBIEN FOR SLEEP AND DILAUDID WAS GIVEN FOR 8/10 PAIN. PT TOLERATED WELL. WILL CONTINUE TO MONITOR.
[2018-02-06] MEDS: ZOLPIDEM 5 MG TAB PO SCH (21:03)
--- NOTE | 2018-02-06 23:15 | NUR ---
PT ASLEEP. NOT IN ANY ACUTE DISTRESS. CHEST EXPANSION VISIBLE.
[2018-02-06] MEDS ORDERED: HEPARIN PER PHARMACY MC PRN (23:55)
[2018-02-07] VITALS: BP 104/50
--- NOTE | 2018-02-07 00:30 | NUR ---
PHARMACY CALLED TO VERIFY CONTINUOUS HEPARIN DRIP. I EXPLAINED TO THEM THAT THERE IS NO ADMINISTRATION SCHEDULED AND HE SAID THE PREVIOUS ADMINISTRATIONS HAVE BEEN OVERRIDDEN. HE SAID THAT HE WILL ENDORSE TO PHARMACY'S AM SHIFT TO FIX THIS. Addendum: 02/07/18 at 0219 by Michael Foreman RN MD [facility].
[2018-02-07] MEDS: hePARIN / DEXT 5% PREMIX 250 ML IV SCH ×2 (00:45→20:05)
--- NOTE | 2018-02-07 00:45 | NUR ---
NEW HEPARIN PARAMETERS. APPT WAS 24.5 AND MD WAS NOTIFIED. NEW RATE AT 1100 UNITS/HR OR 11ML/HR WITH A BOLUS OF 6000 UNITS. PT TOLERATED WELL.
[2018-02-07] MEDS: NACL 0.9% 1,000 ML IV SCH (01:00)
[2018-02-07] MEDS: HYDROmorphone 2 MG TAB PO PRN ×3 (02:38→19:44)
--- NOTE | 2018-02-07 02:38 | NUR ---
PAIN MED GIVEN. PT TOLERATED WELL. PT BACK TO SLEEP AFTER MED WAS ADMINISTERED.
[2018-02-07 04:00] VITALS: BP 116/77
[2018-02-07] MEDS: tiZANidine 4 MG TAB PO SCH ×3 (04:36→21:17)
--- NOTE | 2018-02-07 04:45 | NUR ---
0500 MEDICATION GIVEN. PT TOLERATED WELL. WILL CONTINUE TO MONITOR.
[2018-02-07] MEDS: LEVOTHYROXINE 0.05 MG TAB PO SCH (06:32)
[2018-02-07] MEDS: MIDODRINE 5 MG TAB PO SCH ×3 (06:32→19:43)
[2018-02-07 07:03] LABS: BASOPHILS # (AUTO) 0.1 K/uL (0.00-0.22); BASOPHILS % (AUTO) 1.3 % (0.0-2.0); EOSINOPHILS # (AUTO) 0.3 K/uL (0-0.4); EOSINOPHILS % (AUTO) 4.4 % (0.0-4.0); HEMATOCRIT 28.9 % (36-52); HEMOGLOBIN 9.6 g/dL (12.0-18.0); LYMPHOCYTES # (AUTO) 1.8 K/uL (2.0-11.5); LYMPHOCYTES % (AUTO) 27.3 % (20.5-51.1); MEAN CORPUSCULAR HEMOGLOBIN 30 pg (27-31); MEAN CORPUSCULAR HGB CONC 33 g/dL (33-37); MEAN CORPUSCULAR VOLUME 90.7 fL (80-94); MONOCYTES # (AUTO) 0.5 K/uL (0.8-1.0); MONOCYTES % (AUTO) 7.9 % (1.7-9.3); NEUTROPHILS # (AUTO) 3.8 K/uL (1.8-7.7); NEUTROPHILS % (AUTO) 59.1 % (42.2-75.2); PLATELET COUNT (AUTO) 233 K/uL (140-450); RED BLOOD CELL COUNT(AUTO) 3.19 MIL/uL (4.20-6.10); RED CELL DISTRIBUTION WIDTH 15.8 % (11.6-13.7); WHITE BLOOD COUNT (AUTO) 6.4 K/uL (4.8-10.8)
[2018-02-07] MEDS: ALBUTEROL SULFATE/IPRATROPIU 3 ML SOL IH SCH ×2 (07:07→19:26)
--- NOTE | 2018-02-07 07:15 | NUR ---
REPORT GIVEN TO AM NURSE. PT IN STABLE CONDITION.
--- NOTE | 2018-02-07 07:20 | NUR ---
RECEIVED PT FROM PENSIONS RETIREMENT PLAN SPECIALIST NURSE, KATEY, PT IS ASLEEP LYING ON THE BED, RESPIRATIONS EVEN. PT HAS AN IV LINE ON THE LEFT LOWER FOOT WITH HEPARIN DRIP RUNNING AT 1100 UNITS, INTACT AND ANOTHER IV LINE ON THE UPPER LEFT FOOT, INTACT. PT HAS A CATHETER POT ON HIS LEFT UPPER SIDE OF HIS BODY FOR DIALYSIS, ASYMPTOMATIC. SIDE RAILS ARE UP AND CALL LIGHT WITHIN REACH. SAFETY PRECAUTION ENFORCED. NO SIGN OF DISTRESS NOTED AND WILL CONTINUE TO MONITOR.
--- NOTE | 2018-02-07 07:27 | NUR ---
SHERI FROM LAB CALLED AND REPORTED THE CRITICAL PTT VALUE OF THE PT WHICH IS 121.7. ACKNOWLEDGED AND WILL INFORM THE DOCTOR.
--- NOTE | 2018-02-07 07:40 | NUR ---
INFORMED DR. LEZAMA THAT SHERI FROM LAB CALLED AND REPORTED THE PT'S PTT CRITICAL VALUE OF 121.7. DR. LEZAMA ACKNOWLEDGED AND SAID THAT SHE WILL INFORM THE RESIDENT MD ASSIGNED TO THE PT.
[2018-02-07 07:45] LABS: ANION GAP 9.8 (8-16); CARBON DIOXIDE 25.9 mmol/L (21-32); CREATININE 3.4 mg/dL (0.7-1.3); POTASSIUM 3.7 mmol/L (3.5-5.1)
[2018-02-07 08:00] VITALS: BP 105/53
--- NOTE | 2018-02-07 08:00 | NUR ---
PT'S HEPARIN DRIP WAS STOPPED PER PROTOCOL FOR A PTT VALUE OF OVER 90, PT'S PTT IS 121.7. DR. TEJA ODONNELL AND MD ACKNOWLEDGED AND WILL RELAY IT TO RESIDENT HANDLING THE PT.
[2018-02-07] MEDS: FENOFIBRATE 48 MG TAB PO SCH (08:21)
[2018-02-07] MEDS: LACTOBACILLUS RHAMNOSUS GG 1 EACH CAP PO SCH (08:21)
[2018-02-07] MEDS: DOCUSATE SODIUM 100 MG GELCAP PO SCH ×2 (08:21→21:17)
[2018-02-07] MEDS: ATORVASTATIN 20 MG TAB PO SCH (08:22)
--- NOTE | 2018-02-07 08:32 | NUR ---
PT IS AWAKE AND TAKING HIS BREAKFAST, MEDICATIONS GIVEN AND PT TOLERATED IT WELL. ASPIRATION PRECAUTION ENSURED. NO SIGN OF DISTRESS NOTED ON THE PT. WILL MONITOR.
--- NOTE | 2018-02-07 09:50 | NUR ---
PT'S HEPARIN DRIP WAS STARTED, CO-SIGNED BY RNANDRES AND DRIP WAS DECREASED FROM 1100 TO 900. CHARGE NURSE WAS INFORMED OF THE SAID CHANGE OF HEPARIN DRIP RATE.
[2018-02-07 12:00] VITALS: BP 105/57
--- NOTE | 2018-02-07 12:32 | NUR ---
PT IS AWAKE AND LYING ON THE BED, VITAL SIGNS TAKEN AND MEDICATIONS GIVEN AND PT TOLERATED IT. PT WILL HAVE HIS LUNCH IN A LITTLE LATER BEC HE FEELS A LITTLE PAIN ON HIS BUTTOCKS, PT REPOSITIONED AND MADE COMFORTABLE. WILL MONITOR.
--- NOTE | 2018-02-07 12:42 | NUR ---
PT VERBALIZED A PAIN RATE LEVEL OF 9/10 ON HIS BUTTOCKS AND BACK, REPOSITIONED AND MEDICATION GIVEN AND PT TOLERATED IT NO OTHER SIGN OF DISCOMFORT NOTED. WILL CONTINUE TO MONITOR.
[2018-02-07] MEDS ORDERED: LOV80I SC (15:26)
[2018-02-07] MEDS ORDERED: ROC2I IV (15:32)
[2018-02-07 16:00] VITALS: BP 105/52
--- NOTE | 2018-02-07 16:35 | NUR ---
PT IS AWAKE AND WAS CLEANED WITH THE HELP OF SUPERVISOR DRAPERY HANGING"Ozzy HERNANDEZ AND SKYLER AND HYDRAGUARD CREAM APPLIED TO SACRAL AREA AND OPTIFOAM DRESSINGS APPLED. PT WAS MADE COMFORTABLE AND NO SIGN OF DISTRESS NOTED. WILL CONTINUE TO MONITOR.
[2018-02-07] MEDS ORDERED: HYDRAGUARD CREAM TP ONE (16:37)
[2018-02-07] MEDS: CHLORHEXADINE GLUC 2% CLOTH TP SCH (17:06)
[2018-02-07] MEDS: MUPIROCIN 2% OINT 22 GM TUBE TP SCH (17:13)
--- NOTE | 2018-02-07 17:19 | NUR ---
PT IS AWAKE AND VITAL SIGNS TAKEN AND IS STABLE. MEDICATIONS GIVEN AND PT TOLERATED IT. NO SIGN OF DISTRESS NOTED AND WILL CONTINUE TO MONITOR.
--- NOTE | 2018-02-07 19:15 | NUR ---
ENDORSED PT TO TIN FLIPPER NURSEKATEY FOR CONTINUITY OF CARE. PT IS STABLE AT THIS TIME.
--- NOTE | 2018-02-07 19:16 | NUR ---
REPORT RECEIVED FROM AM NURSE. PT IN STABLE CONDITION. AAOX3. BOARD UPDATED AND REINTRODUCED SELF TO PT. IV SITE PATENT AND INTACT. BOTH 24G RUNNING TKO AND HEPARIN AT 9ML/HR IN THE OTHER. SKIN WARM, DRY, AND INTACT. THERE IS SOME ERYTHEMA AT THE SACRUM. AM SHIFT APPLIED DRESSING. WILL CHANGE IF DRESSING IS SOILED. PT REPORTS PAIN AT 9/10 ON THE PAIN SCALE. WILL MEDICATE. BED LOCKED IN LOW POSITION. CALL CLAROS WITHIN REACH.
--- NOTE | 2018-02-07 19:20 | NUR ---
CRITICAL LAB VALUE RECEIVED FROM WENDY. APPT 72.8. WAS NOTIFIED.
--- NOTE | 2018-02-07 19:40 | NUR ---
at about 9am, Dr. Castillo spoke to Dr. Pickens at the Nursing station in [place] for possible accepting the patient at [facility], also Dr. Pickens was informed to call the nursing sup at [facility] to inform of accepting and was given the phone number. In few hours, I called Anna at [facility] the nursing sup and she did receive our fax about the patient and she said Dr. Pickens did not call her yet, however, she said it is the holiday and no vascular surgeon is available and will endorse it to night shift supervisor and day shift as well. Called also [facility] and spoke to nursing sup and no bad.
--- NOTE | 2018-02-07 19:44 | NUR ---
DILAUDID GIVEN TO PT FOR PAIN 04/16. PT TOLERATED WELL. PT REPOSITION IN BED AND SACRAL REDNESS WAS VIEWED. DRESSING INTACT, CLEAN, AND DRY.
[2018-02-07 20:00] VITALS: BP 103/62
--- NOTE | 2018-02-07 20:00 | NUR ---
HEPARIN DRIP PARAMETERS CHANGED. ORIGINALLY 9ML/HR OR 900 UNITS/HR. PROTOCOL SAYS BETWEEN 71-90 TO REDUCE BY 150UNITS/HR OR 1.5ML/HR. NEW PARAMETERS ARE AT 7.5ML/HR. WITNESS BY EAMON VENEGAS.
[2018-02-07] MEDS: ZOLPIDEM 5 MG TAB PO SCH (21:17)
--- NOTE | 2018-02-07 21:17 | NUR ---
PM MEDS GIVEN. PT TOLERATED WELL. PT ASLEEP BEFORE ADMINISTRATION BUT AWAKENED. PT APPRECIATIVE AND WENT BACK TO SLEEP SOON AFTER. WILL CONTINUE TO MONITOR.
[2018-02-08] VITALS: BP 92/49
[2018-02-08] MEDS: NACL 0.9% 1,000 ML IV SCH (01:00)
[2018-02-08] MEDS: HYDROmorphone 2 MG TAB PO PRN ×2 (01:13→08:35)
--- NOTE | 2018-02-08 01:13 | NUR ---
DILAUDID GIVEN FOR 8/10 PAIN AT HD CATH SITE. PT TOLERATED WELL.
--- NOTE | 2018-02-08 02:00 | NUR ---
PT AWAKE AND ALERT FOR APPT BLOOD DRAW.
--- NOTE | 2018-02-08 02:47 | NUR ---
PT BLOOD DRAW AT 0200 RESULTS BACK. APPT 62.1. NO CHANGE IN PARAMETERS OF 7.5ML/HR DUE TO HEPARIN PROTOCOL. ORDERED NEXT BLOOD DRAW FOR 0800.
[2018-02-08 04:00] VITALS: BP 127/62
--- NOTE | 2018-02-08 04:00 | NUR ---
4AM MEDS GIVEN. PT TOLERATED WELL. ASLEEP BUT AROUSABLE. WILL CONTINUE TO MONITOR.
[2018-02-08] MEDS: tiZANidine 4 MG TAB PO SCH ×2 (04:23→11:52)
[2018-02-08] MEDS: hePARIN / DEXT 5% PREMIX 250 ML IV SCH (04:56)
--- NOTE | 2018-02-08 06:00 | NUR ---
6AM-7AM MEDS GIVEN. PT TOLERATED WELL.
[2018-02-08] MEDS: LEVOTHYROXINE 0.05 MG TAB PO SCH (06:37)
[2018-02-08] MEDS: MIDODRINE 5 MG TAB PO SCH ×2 (06:38→11:52)
--- NOTE | 2018-02-08 07:07 | NUR ---
REPORT GIVEN TO AM NURSE. PT IN STABLE CONDITION.
--- NOTE | 2018-02-08 07:10 | NUR ---
REPORT RECEIVED FROM CARTOGRAPHY TEACHER NURSE, RN. PT AWAKE, ALERT, OX4. PARAPLEGIC STILL HAVING SENSATIONS ON BLE. ABLE TO MOVE BUE, STRENGTH EQUAL ON BOTH SIDES. IV CATHS 22G NOTED TO LEFT FOOT, BOTH ARE PATENT AND INTACT. RUNNING TKO AND HEPARIN AT 750UNITS PER HR. SKIN WARM, DRY, AND INTACT. FOAM DRESSING OVER SACRAL AREA, CLEAN AND INTACT. DIALYSIS TUNNEL CATH NOTED ON LEFT CHEST, DRESSING CLEAN AND INTACT. PT REPORTS PAIN AT 9/10 ON THE PAIN SCALE. WILL MEDICATE. BED LOCKED IN LOW POSITION. CALL LIGHT WITHIN REACH.
--- NOTE | 2018-02-08 07:45 | NUR ---
CALLED , MADE HER AWARE OF THE DIALYSIS ORDER TODAY.
[2018-02-08 08:00] VITALS: BP 109/58
--- NOTE | 2018-02-08 08:25 | NUR ---
LOC AWKE AND ALERT RESPONSIVE NO EVIDENCE OF RESPIRATORY DISTRESS NOTED PATIENT WITH BREAKFAST TRAY AT THIS TIME BODY COMPONENT ENGINEER TO ATTEMPT [facility] THERAPY AT A LATER TIME
[2018-02-08] MEDS: LACTOBACILLUS RHAMNOSUS GG 1 EACH CAP PO SCH (08:35)
[2018-02-08] MEDS: ATORVASTATIN 20 MG TAB PO SCH (08:37)
[2018-02-08] MEDS: DOCUSATE SODIUM 100 MG GELCAP PO SCH (08:38)
[2018-02-08] MEDS: LACTULOSE 20 GM/30 ML UDC PO SCH (08:38)
[2018-02-08] MEDS: FENOFIBRATE 48 MG TAB PO SCH (08:38)
[2018-02-08 08:59] LABS: BASOPHILS # (AUTO) 0.1 K/uL (0.00-0.22); BASOPHILS % (AUTO) 2.3 % (0.0-2.0); EOSINOPHILS # (AUTO) 0.3 K/uL (0-0.4); EOSINOPHILS % (AUTO) 4.7 % (0.0-4.0); HEMATOCRIT 30.4 % (36-52); HEMOGLOBIN 9.9 g/dL (12.0-18.0); LYMPHOCYTES # (AUTO) 1.9 K/uL (2.0-11.5); LYMPHOCYTES % (AUTO) 34.3 % (20.5-51.1); MEAN CORPUSCULAR HEMOGLOBIN 30 pg (27-31); MEAN CORPUSCULAR HGB CONC 32 g/dL (33-37); MEAN CORPUSCULAR VOLUME 91.4 fL (80-94); MONOCYTES # (AUTO) 0.4 K/uL (0.8-1.0); MONOCYTES % (AUTO) 7.2 % (1.7-9.3); NEUTROPHILS # (AUTO) 2.9 K/uL (1.8-7.7); NEUTROPHILS % (AUTO) 51.5 % (42.2-75.2); PLATELET COUNT (AUTO) 237 K/uL (140-450); RED BLOOD CELL COUNT(AUTO) 3.32 MIL/uL (4.20-6.10); WHITE BLOOD COUNT (AUTO) 5.6 K/uL (4.8-10.8)
[2018-02-08 09:16] LABS: ANION GAP 12.8 (8-16); CARBON DIOXIDE 26.9 mmol/L (21-32); POTASSIUM 3.7 mmol/L (3.5-5.1)
[2018-02-08] MEDS: ALBUTEROL SULFATE/IPRATROPIU 3 ML SOL IH SCH (09:43)
--- NOTE | 2018-02-08 10:17 | NUR ---
CALLED [facility] AND SPOKE WITH ELISE. STILL WAITING FOR TELEMETRY BED. CALLED [facility] AND SPOKE WITH SARAH. SHE SAID SHE WOULD LOOK FOR A BED.
[2018-02-08 12:00] VITALS: BP 110/55
--- NOTE | 2018-02-08 12:44 | NUR ---
CALLED [facility] AND SPOKE WITH SARAH. STILL NO BED. CALLED [facility] AND SPOKE WITH ELISE IN ADMITTING. AT PRESENT STILL NO BEDS. I CALLED [facility] AND SPOKE WITH DENTAL SCHEDULER MARIA INES. I ASKED IF THEY HAD A VASCULAR SURGEON. HE SAID DR. ENRIQUEZ IS A VASCULAR SURGEON. I FAXED HIM THE FACE SHEET. HE SAID THAT OUR DOCTOR WOULD HAVE TO SPEAK WITH DR. ENRIQUEZ TO MAKE SURE HE WOULD BE ABLE TO CONSULT.
[2018-02-08] MEDS ORDERED: HYDRAGUARD CREAM TP ONE (13:55)
[2018-02-08] MEDS ORDERED: HYDRAGUARD CREAM TP PRN (14:05)
--- NOTE | 2018-02-08 14:34 | NUR ---
SPOKE WITH DR. ALICEA AND HE SAID HE WOULD SPEAK WITH DR. RUIZ ABOUT HAVING PATIENT TRANSFERRED TO [place] AND FOR DR. RUIZ TO SPEAK WITH THE VASCULAR SURGEON, DR. ENRIQUEZ, PHONE [phone]. I SPOKE WITH DR. ALICEA AND HE SAID THAT DR. RUIZ SPOKE WITH DR. ENRIQUEZ AND THIS PATIENT WILL BE TRANSFERED TO [facility] UNDER DR. RUIZ. I SPOKE WITH MARIA INES, PBX TECHNICIAN AND HE SAID THAT DR. RUIZ CALLED HIM AND THEY HAVE ACCEPTED THE PATIENG. HE WILL GO TO ROOM 116A. PHONE [phone]. I CALLED JOSELYN VENEGASSEWER INSPECTOR NURSE AND INFORMED HER AND SHE WILL SET UP TRANSPORT. HE WILL BE GOING TO A TELEMETRY BED. I INFORMED DR. ALICEA ABOUT THE ROOM NUMBER. I CALLED [facility] AND SPOKE WITH ELISE. STILL NO TELE BEDS AND SHE HAS 5 WAITING. I CANCELED THE TRANSFER TO [facility]. I CALLED [facility] AND SPOKE WITH SARAH AND INFORMED HER TO CANCEL THE TRANSFER THAT PATIENT WAS GOING TO ANOTHER HOSPITAL. I SPOKE WITH THE PATIENT AND INFORMED HIM OF THE TRANSFER AND INFORMED HIM THAT IT WILL BE UNDER MEDICARE. PER PATIENT'S REQUEST, I CALLED [facility] AND INFORMED MAURILIO WILKINSON, THAT HE WILL BE GOING TO [place].
--- NOTE | 2018-02-08 14:58 | NUR ---
REPORTED TO DR ALICEA BP 90/39. WILL PUT IN ORDERS.
[2018-02-08] MEDS ORDERED: MIDODRINE 5 MG TAB PO SCH (15:00)
--- NOTE | 2018-02-08 15:00 | NUR ---
02/08/18 RD FOLLOW UP COMPLETED PLEASE REFER TO NUTRITION ASSESSMENT UNDER CARE ACTIVITY FOR ESTIMATED NUTRITIONAL NEEDS. 1. CONTINUE RENAL DIET TOLERATED 2. RD TO FOLLOW-UP 3-5 DAYS, MODERATE RISK MAXINE SERRA RD
--- NOTE | 2018-02-08 15:20 | NUR ---
JAZZ WILLARD [phone], EXT [phone]. REPORT GIVEN TO THEO GARCÍA. Addendum: 02/08/18 at 1548 by Cedrick Downs RN PT GOING TO 116A, UNDER CARE OF DR RUIZ
[2018-02-08] MEDS: MUPIROCIN 2% OINT 22 GM TUBE TP SCH (15:36)
[2018-02-08 16:00] VITALS: BP 110/55
--- NOTE | 2018-02-08 16:02 | NUR ---
ASKED PT IF HE WANTS ME TO NOTIFY ANYONE THAT HE IS GOING TO [facility]. PT STATED THAT HE HAS CALLED ALREADY.
--- NOTE | 2018-02-08 16:30 | NUR ---
PIC TAKEN FOR SACRAL. SKIN INTACT, HYDRAGUARD APPLIED, OPTIFOAM DRESSING APPLIED FOR PROPHYLAXIS. HEPARIN 3000 UNITS GIVEN VIA IV. HEPARIN WAS DC'D
--- NOTE | 2018-02-08 17:05 | NUR ---
PT'S BEEN TRANSFERRED TO [place] BY PT LEFT IN STABLE CONDITION. Addendum: 02/08/18 at 1735 by Cedrick Downs RN TELE BOX REMOVED.
== END 2018-02-08 17:05 | disposition short-term general hospital (02) | DRG 270 ==
LOC: MED 21:50 → MTU 02-03 00:09
PROVIDERS: ADMIT Family Medicine; ATTEND Family Medicine
PROC: 02PY03Z Removal of Infusion Device from Great Vessel, Open Approach (ICD-10-PCS; 2018-02-04)
PROC: 0JPT3XZ Removal of Tunneled Vascular Access Device from Trunk Subcutaneous Tissue and Fascia, Percutaneous Approach (ICD-10-PCS; 2018-02-04)
PROC: 0JH63XZ Insertion of Tunneled Vascular Access Device into Chest Subcutaneous Tissue and Fascia, Percutaneous Approach (ICD-10-PCS; 2018-02-04)
PROC: 02HV33Z Insertion of Infusion Device into Superior Vena Cava, Percutaneous Approach (ICD-10-PCS; 2018-02-04)
PROC: B548ZZA Ultrasonography of Superior Vena Cava, Guidance (ICD-10-PCS; 2018-02-04)
PROC: 5A1D70Z Performance of Urinary Filtration, Intermittent, Less than 6 Hours Per Day (ICD-10-PCS; principal; 2018-02-04 07:30)
PROC: 5A1D70Z Performance of Urinary Filtration, Intermittent, Less than 6 Hours Per Day (ICD-10-PCS; 2018-02-06)
PROC: 5A1D70Z Performance of Urinary Filtration, Intermittent, Less than 6 Hours Per Day (ICD-10-PCS; 2018-02-08)
DX: T82.41XA Breakdown (mechanical) of vascular dialysis catheter, initial encounter (principal); N17.0 Acute kidney failure with tubular necrosis; N18.6 End stage renal disease; J96.10 Chronic respiratory failure, unspecified whether with hypoxia or hypercapnia; G82.21 Paraplegia, complete; N39.0 Urinary tract infection, site not specified; E44.0 Moderate protein-calorie malnutrition; D68.59 Other primary thrombophilia; I82.C11 Acute embolism and thrombosis of right internal jugular vein; I82.B11 Acute embolism and thrombosis of right subclavian vein; I82.A11 Acute embolism and thrombosis of right axillary vein; T82.868A Thrombosis due to vascular prosthetic devices, implants and grafts, initial encounter; I25.10 Atherosclerotic heart disease of native coronary artery without angina pectoris; N31.2 Flaccid neuropathic bladder, not elsewhere classified; I95.9 Hypotension, unspecified; E78.5 Hyperlipidemia, unspecified; Y83.8 Other surgical procedures as the cause of abnormal reaction of the patient, or of later complication, without mention of misadventure at the time of the procedure; D64.9 Anemia, unspecified; E03.9 Hypothyroidism, unspecified; G47.00 Insomnia, unspecified; Z99.2 Dependence on renal dialysis; Z88.6 Allergy status to analgesic agent; Z88.8 Allergy status to other drugs, medicaments and biological substances; Z68.24 Body mass index [BMI] 24.0-24.9, adult; Z86.718 Personal history of other venous thrombosis and embolism; Z79.01 Long term (current) use of anticoagulants; Y92.89 Other specified places as the place of occurrence of the external cause; E66.3 Overweight; Z86.74 Personal history of sudden cardiac arrest
CPT/HCPCS: 36415; 71045; 76001; 76881; 80048; 80053; 80305; 81001; 82140; 82150; 82330; 83036; 83540; 83690; 83735; 83880; 84100; 84439; 84443; 84484; 85025; 85045; 85610; 85730; 86886; 86900; 86901; 87081; 87086; 87186; 93005; 93880; 93970; 94640; C1750; C1758; J0690; J0696; J1170; J1644; J2001; J2250; J2765; J2997; J3010; J3490; J7030; J7060; J7620; Q0092

== ENCOUNTER 2018-06-12 10:03 | Day surgery (SDC) | payer OTHER ==
[~2018-06-12] VITALS: Ht 175.3 cm; Wt 74.8 kg
[~2018-06-12 10:03] MED LIST: ASCO500T45 PO; ATOR40TA PO; HYDR2TAB6 PO; LACT10SO1 PO; LOV80I SC; PRO5 PO; RIVA20TA PO; ROC2I IV; SYN.05 PO; TIZA4CAP PO; TRI48 PO; VITA1TAB44 PO; ZOLP5TAB1 PO; [UNRECOGNIZED DRUG - CODE] PO
[2018-06-12 10:48] LABS: BASOPHILS # (AUTO) 0.1 K/uL (0.00-0.22); BASOPHILS % (AUTO) 0.8 % (0.0-2.0); EOSINOPHILS # (AUTO) 0.2 K/uL (0-0.4); EOSINOPHILS % (AUTO) 2.2 % (0.0-4.0); HEMATOCRIT 37.7 % (36-52); HEMOGLOBIN 11.9 g/dL (12.0-18.0); LYMPHOCYTES # (AUTO) 1.6 K/uL (2.0-11.5); LYMPHOCYTES % (AUTO) 20.2 % (20.5-51.1); MEAN CORPUSCULAR HEMOGLOBIN 29 pg (27-31); MEAN CORPUSCULAR HGB CONC 32 g/dL (33-37); MEAN CORPUSCULAR VOLUME 90.9 fL (80-94); MONOCYTES # (AUTO) 0.7 K/uL (0.8-1.0); MONOCYTES % (AUTO) 8.8 % (1.7-9.3); NEUTROPHILS # (AUTO) 5.6 K/uL (1.8-7.7); PLATELET COUNT (AUTO) 212 K/uL (140-450); RED BLOOD CELL COUNT(AUTO) 4.15 MIL/uL (4.20-6.10); RED CELL DISTRIBUTION WIDTH 16.6 % (11.6-13.7); WHITE BLOOD COUNT (AUTO) 8.2 K/uL (4.8-10.8)
== END 2018-06-12 12:50 ==
LOC: MUS 10:03 → MMU 10:04 → MUS 12:50
PROVIDERS: ATTEND Family Medicine
DX: R22.1 Localized swelling, mass and lump, neck (principal); Z88.8 Allergy status to other drugs, medicaments and biological substances; Z79.899 Other long term (current) drug therapy; Z98.890 Other specified postprocedural states; J96.11 Chronic respiratory failure with hypoxia; I82.A11 Acute embolism and thrombosis of right axillary vein; N18.6 End stage renal disease; I12.0 Hypertensive chronic kidney disease with stage 5 chronic kidney disease or end stage renal disease; D63.1 Anemia in chronic kidney disease; G82.21 Paraplegia, complete; I25.10 Atherosclerotic heart disease of native coronary artery without angina pectoris; N31.9 Neuromuscular dysfunction of bladder, unspecified; E03.9 Hypothyroidism, unspecified; G47.00 Insomnia, unspecified; F41.9 Anxiety disorder, unspecified; Z79.01 Long term (current) use of anticoagulants
CPT/HCPCS: 36415; 76942; 85025; 85610; 85730; 88305; Q0092

== ENCOUNTER 2018-11-13 10:41 | Emergency (ER) | payer OTHER ==
[~2018-11-13] VITALS: Ht 175.3 cm; Wt 77.1 kg
[2018-11-13 10:55] VITALS: BP 100/62
--- NOTE | 2018-11-13 12:22 | NUR ---
BIB EMS FROM [facility] [place] C/O RIGHT ARM SWELLING X THIS AM. LAST COMPLETE DIALYSIS YESTERDAY. PT ALSO HAS ARTURO CATH NOTED TO LEFT CHEST. PT A&OX4, BREATHING EVEN AND UNLABORED, LUNG SOUNDS CTAB. NSR ON MONITOR, DENIES CP/SOB. DENIES RIGHT ARM PAIN, C/O RIGHT ARM SWELLING. PRESSURE ULCER NOTED TO L HIP, DRESSING CHANGED THIS AM PER PT. PT UNABLE TO MOVE BLE.
--- NOTE | 2018-11-13 13:59 | NUR ---
PT RESTING QUIETLY, BREATHING EVEN AND UNLABORED. NAD. AWAITING DISPO. CONTINUE TO MONITOR.
[2018-11-13] MEDS ORDERED: HYDROcodone/APAP 7.5/325 MG 1 TAB PO PRN (14:25)
[2018-11-13] MEDS ORDERED: DOCUSATE SODIUM 100 MG GELCAP PO PRN (14:25)
[2018-11-13] MEDS ORDERED: ONDANSETRON 4 MG/2 ML VIAL IM/IVP PRN (14:25)
[2018-11-13] MEDS ORDERED: NACL 0.9% 1,000 ML IV SCH (14:25)
[2018-11-13] MEDS ORDERED: ACETAMINOPHEN 325 MG TAB PO PRN (14:25)
[2018-11-13] MEDS ORDERED: MORPHINE SULFATE 2 MG/ML SYR IVP PRN (14:25)
[2018-11-13] MEDS ORDERED: ZOLPIDEM TARTRATE PO PRN (14:35)
[2018-11-13] MEDS ORDERED: TIZANIDINE HCL PO PRN (14:35)
[2018-11-13] MEDS ORDERED: HYDROmorphone 2 MG TAB PO SCH (14:35)
--- NOTE | 2018-11-13 14:40 | NUR ---
PCXR HAS BEEN COMPLETED
--- NOTE | 2018-11-13 14:42 | NUR ---
PT REFUSING EKG AT THIS TIME.
--- NOTE | 2018-11-13 14:43 | NUR ---
DR. BLACKBURN AT BEDSIDE TO SPEAK TO PATIENT AND ANSWER HIS QUESTIONS. PT REFUSING FURTHER TREATMENT AND ADMISSION AT THIS TIME. DR. BLACKBURN AWARE.
--- NOTE | 2018-11-13 15:15 | NUR ---
PT RESTING QUIETLY. EQUAL CHEST RISE AND FALL. BREATHING EVEN AND UNLABORED. REMAINS NSR ON MONITOR. PT DENIES PAIN AT THIS TIME. AWAITING TRANSPORT BACK TO FACILITY.
--- NOTE | 2018-11-13 15:24 | NUR ---
REPORT TO NURSE PATTERSON AT [facility] [phone]. PT AWAITING TRANSPORT ETA 1900.
--- NOTE | 2018-11-13 15:31 | NUR ---
PT'S MAIN CONCERN IS DINNER. OK PER DR. BLACKBURN TO ORDER RENAL DIET FOR PT.
--- NOTE | 2018-11-13 16:39 | NUR ---
PT PROVIDED WITH RENAL DIET PT EATING AT THIS TIME. PT REMAINS A&OX4, BREATHING EVEN AND UNLABORED. NSR ON MONITOR. DENIES PAIN.
[2018-11-13] MEDS ORDERED: MIDODRINE 5 MG TAB PO SCH ×2 (16:55→21:00)
[2018-11-13] MEDS ORDERED: LANTHANUM CARBONATE 750 MG PO SCH (17:00)
--- NOTE | 2018-11-13 18:30 | NUR ---
PT RESTING QUIETLY, EQUAL CHEST RISE AND FALL, NSR ON MONITOR. NO COMPLAINTS AT THIS TIME. AWAITING TRANSPORT BACK TO FACILITY.
--- NOTE | 2018-11-13 19:14 | NUR ---
REPORT TO THEO WHITE
--- NOTE | 2018-11-13 19:14 | NUR ---
REPORT FROM CINDY VENEGAS
[2018-11-13 20:29] VITALS: BP 113/70
--- NOTE | 2018-11-13 20:29 | NUR ---
Patient discharged with v/s stable. Written and verbal after care instructions given and explained. Patient alert, oriented and verbalized understanding of instructions. Ambulance Transport with to retirement. All questions addressed prior to discharge. ID band removed. Patient advised to follow up with PMD. Opportunity to ask questions provided and answered.
[2018-11-13] MEDS ORDERED: ENOXAPARIN 80 MG/0.8 ML SYR SUBQ SCH (21:00)
[2018-11-14] MEDS ORDERED: FENOFIBRATE 48 MG TAB PO SCH (09:00)
[2018-11-14] MEDS ORDERED: RIVAROXABAN 10 MG TAB PO SCH (09:00)
[2018-11-14] MEDS ORDERED: ASCORBIC ACID 500 MG TAB PO SCH (09:00)
[2018-11-14] MEDS ORDERED: VIT-B COMP/VIT-C/FOLIC ACID 1 TAB PO SCH (09:00)
[2018-11-14] MEDS ORDERED: LEVOTHYROXINE 0.05 MG TAB PO SCH (09:00)
[2018-11-14] MEDS ORDERED: ATORVASTATIN 20 MG TAB PO SCH (09:00)
== END 2018-11-13 20:29 ==
LOC: MED 10:41
DX: R60.9 Edema, unspecified (principal); E03.9 Hypothyroidism, unspecified; N18.6 End stage renal disease; Z79.899 Other long term (current) drug therapy; Z88.5 Allergy status to narcotic agent; Z99.2 Dependence on renal dialysis; Z91.15 Patient's noncompliance with renal dialysis
CPT/HCPCS: 71045; 93971; 99284; Q0092